=== PATIENT | female | born 1950 | race Caucasian/White ===

== ENCOUNTER 2019-10-31 13:19 | Outpatient (CLI) | payer MEDICARE ==
--- NOTE | 2019-10-31 15:23 | CT ---
CT PULMONARY LUNG SCAN: Date; 10/31/2019 HISTORY: Former smoker of 40 years, smoking 1/2 pack per day. Quit approximately 10 years ago. FINDINGS: The lungs are clear of any infiltrative process. There are no pulmonary nodules identified. No eviden ce of any interstitial fibrotic lung change. I do not appreciate any significant mediastinal or hilar adenopathy. No coronary calcifications noted. Visualized liver parenchyma is normal. IMPRESSION: Lung-RADS category 1 - Negative. POS: [facility]
== END 2019-10-31 13:20 | disposition home or self-care (01) ==
LOC: CT 13:19
PROVIDERS: ATTEND Family Medicine
DX: Z12.2 Encounter for screening for malignant neoplasm of respiratory organs (principal); Z87.891 Personal history of nicotine dependence
CPT/HCPCS: G0297